=== PATIENT | male | born 1970 | race Caucasian/White ===

== ENCOUNTER 2023-02-11 13:04 | Emergency (ER) | payer OTHER, MEDICAID ==
[~2023-02-11] VITALS: Ht 180.3 cm; Wt 118.0 kg
[2023-02-11 13:17] VITALS: BP 128/88; PULSE 99; TEMP 100.7; O2SAT 94
[2023-02-11 14:16] VITALS: RESP 18
[2023-02-11] MEDS ORDERED: AMOX-580 PO (16:13)
== END 2023-02-11 17:01 | disposition home or self-care (01) ==
LOC: ER 13:05
DX: N39.0 Urinary tract infection, site not specified (principal); Z20.822 Contact with and (suspected) exposure to COVID-19
CPT/HCPCS: 36415; 71045; 87502; 87503; 87811; 99284

== ENCOUNTER 2023-11-03 09:01 | Outpatient (CLI) | payer MEDICAID, OTHER ==
[~2023-11-03] VITALS: Ht 181.6 cm; Wt 115.7 kg
[~2023-11-03 09:01] MED LIST: DEXA0.5T PO; ESOM20CA PO; FLUT1DIS4 INH; LEVO112T5 PO; MONT-40 PO; PRAV80TA3 PO; [UNRECOGNIZED DRUG - CODE] PO; [UNRECOGNIZED DRUG - CODE] SQ
[2023-11-03] MEDS: albuterol 2.5 MG/3 ML nebule NEB PRN (09:33)
[2023-11-03 09:34] VITALS: PULSE 80; RESP 15; O2SAT 96
[2023-11-03 09:47] VITALS: PULSE 79; RESP 15
== END 2023-11-03 23:59 | disposition home or self-care (01) ==
LOC: RT 09:01
PROVIDERS: ATTEND Physician Assistant
DX: J45.30 Mild persistent asthma, uncomplicated (principal)
CPT/HCPCS: 94060; 94760

== ENCOUNTER 2025-02-14 12:38 | Outpatient (CLI) | payer MEDICAID ==
[~2025-02-14 12:38] MED LIST changes: -PRAV80TA3 PO; +PRAV80TA75 PO
--- NOTE | 2025-02-14 17:32 | RADIOLOGY REPORT ---
CLINICAL HISTORY: CHRONIC COUGH TECHNIQUE: CT of the chest was performed with without contrast. Up-to-date CT equipment and radiation dose reduction techniques are utilized as appropriate. WID: COMPARISON: DI CHEST,SINGLE VIEW on DOS: 02/11/23 FINDINGS: Lungs: Cluster of centrilobular nodular opacities along the posterior medial aspect of the right middle lobe.. . The accessory azygous fissure noted. There is trace bronchial wall thickening. Minimal bronchial secretions. 4 mm subsolid nodule in the posterior aspect of the right lower lobe (series 3 image 76) Cardiac: Trace Coronary artery calcium. Vascular: unremarkable Lymph nodes: unremarkable Thoracic inlet: unremarkable Bones: Mild multilevel discogenic degenerative change with trace disc height loss and marginal osteophytes. Upper Abdomen: unremarkable IMPRESSION: Infectious/inflammatory bronchiolitis centered around the posterior /medial aspect of the middle lobe. Differential considerations include but are not limited to aspiration versus chronic mycobacterial avium infection. Mild chronic large airways disease with trace endobronchial secretions. Trace coronary artery calcium
== END 2025-02-14 23:59 | disposition home or self-care (01) ==
LOC: RAD 12:38
PROVIDERS: ATTEND Physician Assistant
DX: J44.9 Chronic obstructive pulmonary disease, unspecified (principal); J40 Bronchitis, not specified as acute or chronic; R91.8 Other nonspecific abnormal finding of lung field; R05.3 Chronic cough; M51.34 Other intervertebral disc degeneration, thoracic region
CPT/HCPCS: 71250; 71270